=== PATIENT | female | born 1965 | race Hispanic/Latino ===

== ENCOUNTER 2017-03-04 07:56 | Emergency (ER) | payer OTHER ==
[~2017-03-04] VITALS: Ht 172.7 cm; Wt 90.9 kg
[~2017-03-04 07:56] MED LIST: ESOM20CA28 PO; ESOM40CA41 PO; HYDR12.5 PO; KEN25CR EXT; SUCR1ORA2 PO
[2017-03-04 08:08] VITALS: BP 130/91; RESP 16; O2SAT 97
--- NOTE | 2017-03-04 09:22 | ED.REPORT ---
HPI-Facial Injury Date of Service Mar 04, 2017 ED Provider: Jesus Stanley MD Pt is an otherwise healthy 51 year old female who presents to the ED complaining of left sided facial swelling onset 3 days ago. She c/o associated left sided facial pain, rhinnorrhea, sore throat, and stabbing left ear pain onset 1 week ago. Per pt, she is unable to hear out of her left ear. The pt reports that she started on Cipro OTIC and PO Augmentin 2 days ago. She states that she has experienced similar symptoms last year that required and ear wick. Nursing Notes Stated Complaint: LEFT SIDE FACIAL SWELLING/PAIN Chief Complaint: ENT & Mouth Nursing Notes Reviewed: Yes Allergies: Coded Allergies: No Known Drug Allergies (Verified Allergy, Unknown, 03/04/17) Scheduled Ciprofloxacin (Ciprofloxacin) 500 Mg Tablet 500 MG PO BID Esomeprazole Magnesium (Nexium) 40 Mg Capsule.dr 40 MG PO DAILY Esomeprazole Magnesium (Nexium) 20 Mg Capsule.dr 20 MG PO BID Hydrochlorothiazide (Hydrochlorothiazide) 12.5 Mg Capsule 12.5 MG PO DAILY Sucralfate Susp (Carafate Susp) 1 Gm/10 Ml Oral.susp 1 GM PO QID Triamcinolone Acet (Triamcinolone Acetonide Cream) 1 Applic/0.25 Gm Cr 1 APPLIC EXT BID Scheduled PRN Ibuprofen (Ibuprofen) 800 Mg Tablet 800 MG PO TID PRN PRN For Pain General Time Seen by Provider: 09:47 Chief Complaint Swelling Hx Obtained From: Patient Arrived By: Walk-in Onset Occurred: 3 days ago Symptom Duration: Since onset Location: : Maxilla left Quality: Painful Severity: Current: Moderate Severity: Maximum: Moderate Recent Healthcare: Recent doctor visit Similar Sx Previous: No Past Medical History Past Medical History left ovarian cyst Reports: Asthma Past Surgical History Colonoscopy upper endoscopy Cleft palate repair Left foot ablasion Family History Heart disease Smoking History Never Smoker Social History Alcohol Use: Denies alcohol use Drug Use: Denies drug use Other Social History: Good social support Ambulatory Status Independent Review of Systems + left sided facial swelling + left sided facial pain Constitutional: Denies: Fever Ears / Nose / Throat: Reports: Earache left, Hearing loss left, Sore throat Complete sys rev & neg: except as marked. Allergy / Immune: Reports: Rhinorrhea Physical Exam Right TM is clear. Left ear is erythematous and the TM is poorly visualized. The ear canal is edematous and occluded. Initial Vital Signs Vital Signs (First) Date Time Temp Pulse Resp B/P Pulse Ox O2 Delivery O2 Flow Rate FiO2 03/04/17 08:08 36.7 82 16 130/91 97 Room Air Initial VS: Reviewed Respiratory: Breath sounds normal, Clear to auscultation, No respiratory distress Cardiovascular: Regular rate & rhythm, Heart sounds normal, Intact distal pulses Abdomen / GI: Soft, Non-tender Extremities: Vascular intact, Neuro intact Skin: Warm, Dry, No cyanosis Psychiatric: Mood/affect normal, Behavior normal Head / Eyes: Atraumatic ENT: Airway patent Right TM is clear. Left ear is erythematous and the TM is poorly visualized. The ear canal is edematous and ecluded. Neck: Atraumatic, Full range of motion Neurologic: Oriented X3, Speech NL, CN II - XII intact Procedures Ear wick placement: Ear wick was placed into the pt's left ear without complication. Time: 10:11 Procedure performed by: ED physician Re-Eval/Medical Decision Med Decision/Clinical Course Med Decision/Clinical Course: 51-year-old female left acute otitis externa with significant canal edema. I placed a wick. There is no evidence of malignant otitis externa at this time. Patient has only been prescribed Ciprodex drops. I added ciprofloxacin oral. She will follow up with her ENT tomorrow. Return precautions given. Source of Hx: Old records Re-Evaluation/Progress : Time of Eval: 10:11 Re-Evaluation/Progress Note: Pt rechecked. Placed earwick with consent. Informed pt of plan for discharge. Pt understands and agrees with plan for discharge. F/U instructions and RTER warnings given. All questions addressed. Counseled Regarding: Diagnosis, Lab results, Need for follow-up, When/why to return to ED Discharge & Departure Impression: Primary Impression: Acute otitis externa of left ear Otitis externa type: unspecified type Qualified Code: H60.502 - Unspecified acute noninfective otitis externa, left ear Disposition: Home Discharge Condition All VS Reviewed: Yes Condition: Stable Patient Instructions: Otitis Externa (ED) Additional Instructions: Thank you for trusting us with you care today. You have otitis externa in your left ear. Call your primary care provider today for a follow up appointment in 1-[address] Almonte, ENT, today for a follow up appointment tomorrow. Come back to the Emergency Department if you cannot get an appointment tomorrow. Return to the Emergency Department for any new or concerning symptoms such as increased pain, swelling, or redness. Referrals: Kena Callahan ARNP (PCP) [facility],Jose A Titus Attestation Portions of this note were transcribed by Anabela Mac. I, Dr. Stanley personally performed the history, physical exam and medical decision-making; I reviewed and confirmed the accuracy of the information in the transcribed note. Signed by: Ariela Gómez, 03/04/17. copies to: [facility]; Kena Callahan ARNP Lucas-Roberts, Ben M MD Mar 04, 2017 09:22 Anabela Garcia Mar 04, 2017 09:49
[2017-03-04] MEDS ORDERED: IBUP800T28 PO (10:32)
[2017-03-04] MEDS ORDERED: CIPR-198 PO (10:32)
[2017-03-04 11:10] VITALS: BP 123/78; PULSE 79; RESP 16; O2SAT 95
== END 2017-03-04 11:12 | disposition home or self-care (01) ==
LOC: SED 07:56
DX: H60.502 Unspecified acute noninfective otitis externa, left ear (principal); J34.89 Other specified disorders of nose and nasal sinuses; J02.9 Acute pharyngitis, unspecified; J45.909 Unspecified asthma, uncomplicated
CPT/HCPCS: 96372; 99283; J1885